=== PATIENT | male | born 1965 | race Caucasian/White ===

== ENCOUNTER → 2020-08-31 11:12 | Outpatient (CLI) | payer OTHER, SELFPAY ==
[2020-08-31] MEDS: COVID-19 VACC #1, MRNA(MOD) 100 MCG/0.5 ML VIAL IM (11:21)
== END ==
PROVIDERS: Visit Provider Internal Medicine
DX: Z23 Encounter for immunization (principal)
CPT/HCPCS: 0011A; 91301

== ENCOUNTER → 2020-09-29 09:41 | Outpatient (CLI) | payer OTHER, SELFPAY ==
[2020-09-29] MEDS: COVID-19 VACC #2, MRNA(MOD) 100 MCG/0.5 ML VIAL IM (09:48)
== END ==
PROVIDERS: Visit Provider Internal Medicine
DX: Z23 Encounter for immunization (principal)
CPT/HCPCS: 0012A; 91301

== ENCOUNTER → 2021-05-30 17:37 | Outpatient (CLI) | payer OTHER, SELFPAY | PROVIDERS: Referring Provider Internal Medicine; Visit Provider Internal Medicine | DX: Z23 Encounter for immunization (principal) | CPT/HCPCS: 90471; 90686 ==

== ENCOUNTER → 2021-05-31 08:28 | Outpatient (CLI) | payer OTHER, SELFPAY ==
[2021-05-31 12:01] LABS: COVID19 -Nasal RAPID Negative (Negative)
== END ==
PROVIDERS: Visit Provider Nurse Practitioner Family
DX: Z20.822 Contact with and (suspected) exposure to COVID-19 (principal); R19.7 Diarrhea, unspecified; R51.9 Headache, unspecified
CPT/HCPCS: 87635

== ENCOUNTER → 2021-06-02 10:06 | Outpatient (CLI) | payer OTHER, SELFPAY ==
[2021-06-02] MEDS: COVID-19 VACC #3, MRNA(MOD) 50 MCG/0.25 ML VIAL IM (10:07)
== END ==
PROVIDERS: Visit Provider Internal Medicine
DX: Z23 Encounter for immunization (principal)
CPT/HCPCS: 0013A; 91301; 99281

== ENCOUNTER → 2021-06-08 19:04 | Outpatient (CLI) | payer OTHER, SELFPAY | PROVIDERS: Referring Provider Internal Medicine; Visit Provider Internal Medicine | DX: Z23 Encounter for immunization (principal) | CPT/HCPCS: 90471; 90686 ==

== ENCOUNTER → 2021-07-07 09:28 | Outpatient (CLI) | payer OTHER, SELFPAY ==
[2021-07-07 11:48] LABS: COVID19 -Nasal RAPID Negative (Negative)
== END ==
PROVIDERS: Visit Provider Physician Assistant
DX: Z20.822 Contact with and (suspected) exposure to COVID-19 (principal); R09.81 Nasal congestion
CPT/HCPCS: 87635

== ENCOUNTER → 2021-08-17 14:42 | Outpatient (CLI) | payer OTHER, SELFPAY ==
[2021-08-17 16:04] LABS: Digoxin < 0.4 ng/mL (0.8-2.0)
[2021-08-17 16:05] LABS: BUN Creatinine Ratio 16.5 (6-22); Blood Urea Nitrogen 18 mg/dL (9-20); Calcium 9.6 mg/dL (8.4-10.2); Carbon Dioxide 30 mmol/L (22-32); Chloride 105 mmol/L (98-107); Estimated Glomerular Filt Rate > 60.0 mL/min (>60); Glucose 103 mg/dL (70-100); HEMOLYSIS < 15 (0-50); Potassium 3.8 mmol/L (3.4-5.1); Sodium 141 mmol/L (137-145)
== END ==
PROVIDERS: Referring Provider Internal Medicine Advanced Heart Failure and Transplant Cardiology; Visit Provider Internal Medicine Advanced Heart Failure and Transplant Cardiology
DX: I50.20 Unspecified systolic (congestive) heart failure (principal)
CPT/HCPCS: 36415; 80048; 80162

== ENCOUNTER 2021-12-18 08:58 | Emergency (ER) | payer OTHER, SELFPAY ==
[2021-12-18 09:37] VITALS: BP 136/77; PULSE 103; RESP 16; TEMP 36.7; O2SAT 98; BMI 25.2
--- NOTE | 2021-12-18 09:46 | DI.CT.S_ITS ---
PROCEDURE: CT HEAD/BRAIN WO CON INDICATIONS: fall TECHNIQUE: Noncontrast 4.5 mm thick angled axial sections acquired from the foramen magnum to the vertex, with coronal and sagittal reformats. For radiation dose reduction, the following was used: automated exposure control, adjustment of mA and/or kV according to patient size. COMPARISON: [facility], CT, CT CERVICAL SPINE WO CON, 12/18/2021, 9:58. FINDINGS: Image quality: Excellent. CSF spaces: Basal cisterns are patent. No extra-axial fluid collections. Ventricles are normal in size and shape. Brain: No midline shift. No intracranial masses or hemorrhage. Miles-white matter interface is normal. Skull and face: Calvarium and visualized facial bones are intact, without suspicious lesions. Sinuses: Visualized sinuses and mastoids are clear. IMPRESSION: No acute intracranial hemorrhage is seen. No acute intracranial process is seen. Dictated by: Allen Melo M.D. on 12/18/2021 at 9:27 Approved by: Allen Melo M.D. on 12/18/2021 at 9:27
--- NOTE | 2021-12-18 09:47 | DI.RAD.S_ITS ---
PROCEDURE: XR SHOULDER LT MIN 2V INDICATIONS: fall pain TECHNIQUE: 2 views of the shoulder were acquired. COMPARISON: None. FINDINGS: Bones: No fractures or dislocations. There is widening at the left acromioclavicular joint. No suspicious bony lesions. Visualized ribs appear intact. Soft tissues: No suspicious soft tissue calcifications. IMPRESSION: Widening at the left acromioclavicular joint suggesting AC joint separation. No acute fracture. Dictated by: Digna Mayo M.D. on 12/18/2021 at 10:41 Approved by: Digna Mayo M.D. on 12/18/2021 at 10:42
--- NOTE | 2021-12-18 09:47 | DI.RAD.S_ITS ---
PROCEDURE: XR CLAVICLE LT INDICATIONS: fall, pain distal clavicle TECHNIQUE: 2 views of the clavicle were acquired. COMPARISON: [facility], CR, XR SHOULDER LT MIN 2V, 12/18/2021, 9:44. FINDINGS: Bones: No acute fracture or dislocation. There is widening at the acromioclavicular joint. Soft tissues: No suspicious soft tissue calcifications. IMPRESSION: Widening at the acromioclavicular joint suggesting AC joint separation. Dictated by: Digna Mayo M.D. on 12/18/2021 at 10:41 Approved by: Digna Mayo M.D. on 12/18/2021 at 10:41
--- NOTE | 2021-12-18 10:06 | DI.CT.S_ITS ---
PROCEDURE: CT CERVICAL SPINE WO CON INDICATIONS: fall, tender C 456 TECHNIQUE: Noncontrast 3 mm thick sections acquired from the skull base to the T4 level. Sagittal and coronal reformats were then constructed. For radiation dose reduction, the following was used: automated exposure control, adjustment of mA and/or kV according to patient size. COMPARISON: [facility], CR, XR SHOULDER LT MIN 2V, 12/18/2021, 9:44. [facility], CT, CT HEAD/BRAIN WO CON, 12/18/2021, 9:58. [facility], CR, XR CLAVICLE LT, 12/18/2021, 9:44. FINDINGS: Image quality: Excellent. Bones: No fractures or dislocations. Visualized superior ribs are intact. Bone marrow heterogeneity and degenerative changes can be seen throughout. There is moderate disc space narrowing at C4-C5, C5-C6, and C6-C7. Posteriorly directed endplate osteophytes are seen at C5-C6 and C6-C7. Levoconvex cervical thoracic scoliotic curvature is seen. Soft tissues: Prevertebral soft tissues are normal in thickness. No paravertebral hematomas. No apical pneumothoraces. Left-sided AICD leads are seen. IMPRESSION: Negative for acute fracture. Degenerative changes are seen, which are worst inferiorly. Generalized heterogeneity seen of the bone marrow. Levoconvex cervical thoracic scoliotic curvature. Incidental note is made of: AICD Dictated by: Allen Melo M.D. on 12/18/2021 at 9:31 Approved by: Allen Melo M.D. on 12/18/2021 at 9:33
[2021-12-18] MEDS: IBUPROFEN 400 MG TABLET PO (10:23)
[2021-12-18] MEDS: ACETAMINOPHEN 325 MG TABLET PO (10:24)
--- NOTE | 2021-12-18 10:41 | ED.FALL ---
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 He is complaining of head pain neck pain and left shoulder pain. He is not sure if there was a loss of consciousness. He is not anticoagulated. He very specifically describes a mechanical fall with no preceding syncope symptoms, palpitations, pain, headache, abdominal pain, vomiting, diarrhea. Related Data Allergies Allergy/AdvReac Type Severity Reaction Status Date / Time No Known Drug Allergies Allergy Unverified 05/25/21 14:40 Review of Systems Review of Systems Narrative: Remainder of complete review of systems is otherwise unremarkable except for that included in the HPI. Patient History Medical History Congestive heart failure Presence of combination internal cardiac defibrillator (ICD) and pacemaker Social History Smoking Status: Never smoker Smoking Status: Never smoker alcohol intake frequency: 0-2 drinks per day Substance Use Type: does not use Exam Initial Vital Signs Initial Vital Signs: Vital Signs Temperature 98.0 F 12/18/21 09:37 Pulse Rate 103 H 12/18/21 09:37 Respiratory Rate 16 12/18/21 09:37 Blood Pressure 136/77 12/18/21 09:37 Pulse Oximetry 98 12/18/21 09:37 General: Healthy appearing, in no acute distress. Able to give a complete and coherent history. Well-nourished well-developed HEENT: Moist mucous membranes, normal sclera with reactive pupils, abrasion over the forehead and bridge of the nose with no overt laceration or contusions. Neck: Point tenderness midline C4-5 and 6 Respiratory: Lungs are clear to auscultation, no wheezing no rales no rhonchi. Full and symmetrical air movement Cardiac: Regular rate and rhythm no murmurs no bruits Abdomen: Soft, nontender, good bowel tones, no flank pain Skin: Warm and dry, no rashes Neurologic: Grossly neurologically intact with no obvious asymmetries or abnormalities Extremities: Tenderness to the left anterior shoulder/distal clavicle. Minor anterior fullness with what looks like will develop into some bruising anteriorly. Tenderness over the distal clavicle with full nonpainful passive range of motion at the shoulder. No lower extremity or low back injuries Psych: Cooperative, appropriate insight and affect Course Orders Ordered: ED Orders 12/18/21 09:46 CT head/brain wo con Stat 12/18/21 09:47 XR clavicle LT Stat XR shoulder LT min 2V Stat 12/18/21 10:06 CT cervical spine wo con Stat Discontinued Medications Acetaminophen (Acetaminophen 325 Mg Tablet) 325 mg PO NOW ONE Stop: 12/18/21 09:49 Last Admin: 12/18/21 10:24 Dose: 325 mg Documented by: LUIS ALBERTO Ibuprofen (Ibuprofen 400 Mg Tablet) 400 mg PO NOW ONE Stop: 12/18/21 09:49 Last Admin: 12/18/21 10:23 Dose: 400 mg Documented by: LUIS ALBERTO Vital Signs Vital signs: Vital Signs - 8 hr 12/18/21 09:37 Temperature 98.0 F Pulse Rate 103 H Respiratory Rate 16 Blood Pressure 136/77 Pulse Oximetry 98 MDM - Fall Imaging Data CT - cervical spine: Radiologist's Impression: FINDINGS:? Image quality:? Excellent.? ? Bones:? No fractures or dislocations.? Visualized superior ribs are intact.? Bone marrow heterogeneity and degenerative changes can be seen throughout.? There is moderate disc space narrowing at C4-C5, C5-C6, and C6-C7.? Posteriorly directed endplate osteophytes are seen at C5-C6 and C6-C7. ? Levoconvex cervical thoracic scoliotic curvature is seen. ? Soft tissues:? Prevertebral soft tissues are normal in thickness.? No paravertebral hematomas.? No apical pneumothoraces.? Left-sided AICD leads are seen. ? ? IMPRESSION:? Negative for acute fracture. ? Degenerative changes are seen, which are worst inferiorly. ? Generalized heterogeneity seen of the bone marrow. ? Levoconvex cervical thoracic scoliotic curvature. ? ? ? Incidental note is made of: AICD ? ? ? Dictated by: Allen Melo M.D. on 12/18/2021 at 9:31? ?? XR shoulder : Radiologist's Impression: FINDINGS:? ? Bones:? No fractures or dislocations.? There is widening at the left acromioclavicular joint.? No suspicious bony lesions.? Visualized ribs appear intact.? ? Soft tissues:? No suspicious soft tissue calcifications.? ? IMPRESSION:? Widening at the left acromioclavicular joint suggesting AC joint separation. ?No acute fracture. ? ? Dictated by: Digna Mayo M.D. on 12/18/2021 at 10:41 ?? XR clavicle: Radiologist's Impression: FINDINGS:? ? Bones:? No acute fracture or dislocation.? There is widening at the acromioclavicular joint. ? ? Soft tissues:? No suspicious soft tissue calcifications.? ? IMPRESSION:? Widening at the acromioclavicular joint suggesting AC joint separation. ? ? Dictated by: Digna Mayo M.D. on 12/18/2021 at 10:41? ?? CT scan - head: Radiologist's Impression: FINDINGS:? Image quality:? Excellent.? ? CSF spaces:? Basal cisterns are patent.? No extra-axial fluid collections.? Ventricles are normal in size and shape.? ? Brain:? No midline shift.? No intracranial masses or hemorrhage.? Miles-white matter interface is normal.? ? Skull and face:? Calvarium and visualized facial bones are intact, without suspicious lesions.? ? Sinuses:? Visualized sinuses and mastoids are clear.? ? IMPRESSION:? No acute intracranial hemorrhage is seen.? ? No acute intracranial process is seen.? ? ? Dictated by: Allen Melo M.D. on 12/18/2021 at 9:27? ?? MDM Narrative Medical decision making narrative: 56-year-old gentleman with mechanical fall. Abrasion to the forehead and the bridge of the nose without intracranial hemorrhage, fractures or cervical spine injury. Left shoulder pain most likely a left AC separation with no evidence of bony injury. He will be placed in a sling. Ibuprofen and Tylenol were given for pain control. Findings were reviewed with patient. Questions were answered will ask him to follow-up with either his primary care physician or orthopedist regarding the left AC separation. L&I forms are filled out Discharge Plan Departure Patient Disposition: Home Clinical Impression: Fall Qualifiers: Encounter type: initial encounter Qualified Code(s): W19.XXXA - Unspecified fall, initial encounter AC separation Qualifiers: Encounter type: initial encounter Laterality: left Qualified Code(s): S43.102A - Unspecified dislocation of left acromioclavicular joint, initial encounter Abrasion of forehead Qualifiers: Encounter type: initial encounter Qualified Code(s): S00.81XA - Abrasion of other part of head, initial encounter Activity Restrictions/Additional Instructions: Thank you for coming in today. I am sorry that you fell Fortunately, you only scratched her forehead and did not have any skull fractures or internal bleeding. Your cervical spine has no acute fractures. I suspect you are going to have a whiplash-type injury pain pattern with some neck pain, headaches and likely low back pain. Everything seems to hurt more in the 1st 48 hours after an injury You also have an acromioclavicular joint separation on the left side. This typically is treated simply with a sling and allowed to heal. Using ice to the area, the sling as long as it is comfortable and using 400 mg of ibuprofen (2 [id number] pills) and 1 Tylenol every 6 hours can be very helpful in controlling pain. If you have new or changing symptoms, please feel free to return to the ER. Referrals: Miscellaneous,[facility] [Primary Care Provider] -
[2021-12-18 11:00] VITALS: BP 140/80; PULSE 77; O2SAT 98
== END 2021-12-18 11:07 | disposition home or self-care (01) ==
PROVIDERS: Emergency Provider Emergency Medicine
DX: S43.102A Unspecified dislocation of left acromioclavicular joint, initial encounter (principal); S00.81XA Abrasion of other part of head, initial encounter; W01.198A Fall on same level from slipping, tripping and stumbling with subsequent striking against other object, initial encounter; M54.2 Cervicalgia; M25.512 Pain in left shoulder; Y99.0 Civilian activity done for income or pay
CPT/HCPCS: 70450; 72125; 73000; 73030; 99284